=== PATIENT | male | born 1940 | race Caucasian/White ===

== ENCOUNTER → 2016-12-22 | Outpatient (CLI) | payer OTHER, MEDICARE ==
--- NOTE | 2016-12-22 12:18 | DI ---
LEFT KNEE, 12/22/2016 10:37 AM: Clinical History: Left knee pain. Previous Exam: None at this facility. 4 views are submitted. The AP and tunnel views are weight bearing views. There is a small joint effus ion. 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 Severe joint sp karla narrowing with bony proliferative changes present in the medial and lateral compartments. There i s a bony density present along the posterior margin of the lateral tibial plateau that may represent exuberant bony proliferation. Moderate degenerative changes are present in the patellofemoral compart ment. 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 There is anterior translation of the tibia and this would sug gest there is a complete tear of the ACL. Moderate arthritic changes are present in the patellofemora l compartment.
--- NOTE | 2016-12-22 13:01 | DI ---
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 Previous Exam: 05/09/2016. There is no soft tissue abnormality. The bony structures of the pelvis are normal except at the site of the left acetabulum. The patient is status post left total hip replacement and the prosthetic marie ce articulates normally. The stebbins left acetabulum has been modified to except the prosthetic acetab ulum. 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 There is no evidence of loosening of the prosthetic device. Readin. Status post total left hip replacement. The prosthetic device articulates normally. 2. The AP pelvis view is unremarkable.
== END ==
LOC: ORTHO 11:28
PROVIDERS: ATTEND Orthopaedic Surgery
DX: M25.562 Pain in left knee (principal); M25.552 Pain in left hip; M17.12 Unilateral primary osteoarthritis, left knee; Z96.642 Presence of left artificial hip joint
CPT/HCPCS: 73502; 73564

== ENCOUNTER → 2017-03-05 | Outpatient (CLI) | payer OTHER, MEDICARE | LOC: MMPC 09:00 | PROVIDERS: ATTEND Family Medicine | DX: M79.605 Pain in left leg (principal) | CPT/HCPCS: 93922 ×2; 99213; G0463 ==

== ENCOUNTER → 2017-03-20 | Outpatient (CLI) | payer OTHER, MEDICARE ==
[2017-03-20 08:22] LABS: BASOPHILS # (AUTO) 0.02 10*3/UL; BASOPHILS % (AUTO) 0.3 % (0-1); EOSINOPHILS # (AUTO) 0.17 10*3/UL; EOSINOPHILS % (AUTO) 2.8 % (0-8); HEMATOCRIT 45.6 % (42.0-52.0); HEMOGLOBIN 14.9 g/dL (14.0-18.0); LYMPHOCYTES # (AUTO) 1.41 10*3/uL; MEAN CORPUSCULAR HEMOGLOBIN 32.9 PG (27-31); MEAN CORPUSCULAR HGB CONC 32.7 g/dL (33-37); MEAN CORPUSCULAR VOLUME 100.7 FL (80-90); MEAN PLATELET VOLUME 10.1 FL (7.4-12.2); MONOCYTES # (AUTO) 0.64 10*3/UL (0.3-0.8); MONOCYTES % (AUTO) 10.6 % (5-15); NEUTROPHILS # (AUTO) 3.76 10*3/UL; NEUTROPHILS % (AUTO) 62.6 % (50-80); RED BLOOD COUNT 4.53 10^6/uL (4.70-6.10)
[2017-03-20 08:27] LABS: PLATELET MORPHOLOGY COMMENT NORMAL MORPHOLOGY (NORM); RBC MORPHOLOGY COMMENT NORMAL MORPHOLOGY (NORM); WBC MORPHOLOGY COMMENT NORMAL MORPHOLOGY (NORM)
[2017-03-20 08:33] LABS: BUN/CREATININE RATIO 15.45 (6-20); CALCIUM 9.2 mg/dL (8.7-10.7); SERUM ALBUMIN 4.1 g/dL (3.5-4.8)
== END ==
LOC: LAB 07:29
PROVIDERS: ATTEND Surgery
DX: I70.212 Atherosclerosis of native arteries of extremities with intermittent claudication, left leg (principal)
CPT/HCPCS: 36415; 80053; 85025; 85610

== ENCOUNTER → 2017-05-15 | Outpatient (CLI) | payer OTHER, MEDICARE | LOC: MMPC 09:00 | PROVIDERS: ATTEND Family Medicine | DX: R91.1 Solitary pulmonary nodule (principal); J44.9 Chronic obstructive pulmonary disease, unspecified | CPT/HCPCS: 99213; G0463 ==

== ENCOUNTER → 2017-06-23 | Outpatient (CLI) | payer OTHER, MEDICARE ==
[2017-06-23 08:47] LABS: HEMOGLOBIN 14.3 g/dL (14.0-18.0); MEAN CORPUSCULAR HGB CONC 32.5 g/dL (33-37); MEAN CORPUSCULAR VOLUME 98.4 FL (80-90); MONOCYTES % (AUTO) 8.8 % (5-15); NEUTROPHILS % (AUTO) 58.3 % (50-80); RED BLOOD COUNT 4.47 10^6/uL (4.70-6.10)
[2017-06-23 08:48] LABS: BASOPHILS # (AUTO) 0.06 10*3/UL; EOSINOPHILS # (AUTO) 0.22 10*3/UL; EOSINOPHILS % (AUTO) 3.7 % (0-8); LYMPHOCYTES # (AUTO) 1.66 10*3/uL; MONOCYTES # (AUTO) 0.52 10*3/UL (0.3-0.8); NEUTROPHILS # (AUTO) 3.43 10*3/UL; PLATELET MORPHOLOGY COMMENT NORMAL MORPHOLOGY (NORM); RBC MORPHOLOGY COMMENT NORMAL MORPHOLOGY (NORM); WBC MORPHOLOGY COMMENT NORMAL MORPHOLOGY (NORM)
[2017-06-23 09:11] LABS: CALCIUM 8.9 mg/dL (8.7-10.7); CHOL/HDL RATIO 2.66 RATIO (0-4.0); SERUM ALBUMIN 3.8 g/dL (3.5-4.8)
[2017-06-23 09:28] LABS: FREE T4 (FREE THYROXINE) 1.15 ng/dL (0.93-1.71)
== END ==
LOC: LAB 07:35
PROVIDERS: ATTEND Family Medicine
DX: I10 Essential (primary) hypertension (principal); E78.5 Hyperlipidemia, unspecified; I48.0 Paroxysmal atrial fibrillation; G62.9 Polyneuropathy, unspecified; J44.9 Chronic obstructive pulmonary disease, unspecified; E55.9 Vitamin D deficiency, unspecified; Z79.899 Other long term (current) drug therapy; N40.0 Benign prostatic hyperplasia without lower urinary tract symptoms; Z12.5 Encounter for screening for malignant neoplasm of prostate
CPT/HCPCS: 36415; 80053; 80061; 82306; 82607; 83036; 84439; 84443; 85025; G0103